=== PATIENT | female | born 2000 | race Caucasian/White ===

== ENCOUNTER 2024-04-02 12:07 | Emergency (ER) | payer OTHER | END 2024-04-02 13:01 | disposition admitted as inpatient to this hospital (09) | LOC: CSHERS 12:07 | DX: O9A.212 Injury, poisoning and certain other consequences of external causes complicating pregnancy, second trimester (principal); S39.91XA Unspecified injury of abdomen, initial encounter; Z3A.26 26 weeks gestation of pregnancy; V89.2XXA Person injured in unspecified motor-vehicle accident, traffic, initial encounter | CPT/HCPCS: 76815 ==

== ENCOUNTER 2024-04-02 12:40 | Day surgery (SDC) | payer OTHER ==
[2024-04-02 13:26] VITALS: BMI 34.3
[2024-04-02] MEDS: Acetaminophen 325 MG TAB PO SCH (15:15)
== END 2024-04-02 17:29 | disposition home or self-care (01) ==
LOC: CSHLD/OP 12:40
PROVIDERS: ATTEND Family Medicine
DX: O9A.212 Injury, poisoning and certain other consequences of external causes complicating pregnancy, second trimester (principal); O99.891 Other specified diseases and conditions complicating pregnancy; R10.31 Right lower quadrant pain; Z3A.27 27 weeks gestation of pregnancy; Z79.82 Long term (current) use of aspirin; V48.0XXA Car driver injured in noncollision transport accident in nontraffic accident, initial encounter
CPT/HCPCS: 76815; 99282

== ENCOUNTER 2024-04-30 20:31 | Inpatient (IN) | payer OTHER ==
[2024-04-30 21:40] LABS: Hematocrit 36.9 % (34.9-44.5); Hemoglobin 12.7 g/dL (12.0-15.5); Mean Corpuscular HGB CONC 34.4 g/dL (32.0-36.0); Mean Corpuscular Hemoglobin 29.3 pg (27.0-33.0); Mean Platelet Volume 14.1 fL (7.4-10.4); Platelet Count 125 10x3/uL (150-450); RBC Distribution Width 13.6 % (11.5-14.5); Red Blood Cell (RBC) Count 4.34 10x6/uL (3.90-5.03); White Blood Cell (WBC) Count 8.5 10x3/uL (3.5-10.5)
[2024-04-30 21:42] LABS: Bilirubin Neg (Negative); Blood, Urine Negative (Negative); Clarity Clear (Clear); Glucose, Urine (Dipstick) Normal (Negative); Ketone, Urine Negative (Negative); Leukocyte Negative (Negative); Nitrite Negative (Negative); Protein, Urine (Dipstick) 30 mg/dl (Neg-Trace); Urobilinogen Normal mg/dL (Less than 2)
[2024-04-30 21:43] LABS: MDiff Complete? YES
[2024-04-30 21:47] LABS: ALT (SGPT) 12 U/L (8-55); AST (SGOT) 16 U/L (5-34); Albumin 2.8 g/dL (3.5-5.0); Alkaline Phosphatase 126 U/L (40-110); Anion Gap 14 mmol/L (10-20); BUN (Urea Nitrogen) 5 mg/dL (7.0-18.7); Bilirubin, Total 0.2 mg/dL (0.2-1.2); Calc. Creatinine Clearance 0 mL/min (70-130); Calcium 8.5 mg/dL (7.8-10.44); Carbon Dioxide 16 mmol/L (22-29); Chloride 111 mmol/L (98-107); Estimated GFR 130; Globulin 2.8 g/dL (2.4-3.5); Glucose 94 mg/dL (70-105); Magnesium 1.9 mg/dL (1.6-2.6); Potassium 3.7 mmol/L (3.5-5.1); Protein, Total 5.6 g/dL (6.0-8.3); Sodium 137 mmol/L (136-145)
[2024-04-30 21:52] LABS: Troponin I Less than 0.010 ng/mL (< 0.028)
[2024-04-30 21:55] LABS: Bacteria/HPF 3+ HPF (None Seen); CAUTI Indications for Culture Pelvic or flank pain; Mucous/LPF 1+ LPF (<2+); RBC/HPF None Seen HPF (0-3); Urine Culture Reflex No No; WBC/HPF 0-3 HPF (0-3)
[2024-04-30 22:16] LABS: Platelet Adequacy Comment Appears Decreased
[2024-04-30 22:18] LABS: Microcytosis SLIGHT = 6-15 cells (100X) (0-5/hpf)
[2024-04-30 22:20] LABS: Band 8 % (5-11); Eosinophils 2 % (0-10); Giant Platelets SLIGHT HPF (0-5); Lymphocytes 25 % (21-51); Monocytes 7 % (0-10); Neutrophil 58 % (42-75)
[2024-04-30] MEDS ORDERED: Acetaminophen 500 MG TAB ONE (23:11)
[2024-04-30] MEDS ORDERED: hydrALAZINE 20 MG/ML VIAL SLOW IVP PRN (23:54)
[2024-05-01] MEDS ORDERED: Ondansetron PF 4 MG/2 ML Vial IVP PRN (00:48)
[2024-05-01] MEDS ORDERED: hydrALAZINE 20 MG/ML VIAL SLOW IVP PRN (00:48)
[2024-05-01] MEDS ORDERED: Promethazine HCl 25 MG/ML VIAL IM PRN (00:48)
[2024-05-01] MEDS ORDERED: Acetaminophen 500 MG TAB PO PRN (00:48)
[2024-05-01] MEDS: Betamet Acet/Betamet Na Ph 30 MG/5 ML VIAL IM SCH (09:09)
[2024-05-01] MEDS: Prenatal Vitamin 1 TAB PO SCH (09:09)
[2024-05-01] MEDS: Aspirin 81 mg Enteric Coated Tablet PO SCH (09:09)
[2024-05-01] MEDS: Pantoprazole DR 40 MG TAB PO SCH (09:10)
[2024-05-01 09:26] VITALS: BMI 36.7
[2024-05-01] MEDS: Calcium Carbonate 500 MG ChewTAB PO PRN (23:10)
[2024-05-02 04:02] LABS: #Basophils 0.01 10x3/uL (0.0-0.2); #Monocytes 0.62 10x3/uL (0.0-1.1); #Neutrophils 10.56 10x3/uL (1.5-8.4); %Basophils 0.1 % (0.0-2.0); %Lymphocytes 9.6 % (18.0-47.0); %Monocytes 4.9 % (0.0-10.0); %Neutrophils 83.6 % (40.0-75.0); Hematocrit 33.7 % (34.9-44.5); Hemoglobin 11.5 g/dL (12.0-15.5); Mean Corpuscular HGB CONC 34.1 g/dL (32.0-36.0); Mean Corpuscular Hemoglobin 29.3 pg (27.0-33.0); Platelet Count 126 10x3/uL (150-450); RBC Distribution Width 13.8 % (11.5-14.5); Red Blood Cell (RBC) Count 3.92 10x6/uL (3.90-5.03); White Blood Cell (WBC) Count 12.6 10x3/uL (3.5-10.5)
[2024-05-02 04:08] LABS: ALT (SGPT) 9 U/L (8-55); AST (SGOT) 13 U/L (5-34); Albumin 2.6 g/dL (3.5-5.0); Alkaline Phosphatase 111 U/L (40-110); Anion Gap 15 mmol/L (10-20); BUN (Urea Nitrogen) 8 mg/dL (7.0-18.7); Bilirubin, Total 0.2 mg/dL (0.2-1.2); Calc. Creatinine Clearance 190 mL/min (70-130); Calcium 8.9 mg/dL (7.8-10.44); Carbon Dioxide 18 mmol/L (22-29); Chloride 108 mmol/L (98-107); Estimated GFR 123; Globulin 2.8 g/dL (2.4-3.5); Glucose 130 mg/dL (70-105); Potassium 3.8 mmol/L (3.5-5.1); Protein, Total 5.4 g/dL (6.0-8.3); Sodium 137 mmol/L (136-145)
[2024-05-02 04:14] LABS: Creatinine, Urine 137.71 mg/dL (47-110)
[2024-05-02] MEDS ORDERED: Famotidine 20 MG TAB PO SCH (09:00)
[2024-05-02] MEDS: Polyethylene Glycol 3350 17 GM Packet PO SCH (09:25)
[2024-05-03 03:36] LABS: Hematocrit 33.3 % (34.9-44.5); Hemoglobin 11.4 g/dL (12.0-15.5); MDiff Complete? YES; Mean Corpuscular HGB CONC 34.2 g/dL (32.0-36.0); Mean Corpuscular Hemoglobin 29.7 pg (27.0-33.0); Mean Corpuscular Volume 86.7 fL (81.6-98.3); Mean Platelet Volume 14.1 fL (7.4-10.4); Platelet Count 125 10x3/uL (150-450); RBC Distribution Width 13.9 % (11.5-14.5); Red Blood Cell (RBC) Count 3.84 10x6/uL (3.90-5.03)
[2024-05-03 03:49] LABS: ALT (SGPT) 9 U/L (8-55); AST (SGOT) 12 U/L (5-34); Albumin 2.7 g/dL (3.5-5.0); Alkaline Phosphatase 109 U/L (40-110); Anion Gap 13 mmol/L (10-20); BUN (Urea Nitrogen) 9 mg/dL (7.0-18.7); Bilirubin, Total 0.2 mg/dL (0.2-1.2); Calc. Creatinine Clearance 199 mL/min (70-130); Calcium 8.6 mg/dL (7.8-10.44); Carbon Dioxide 20 mmol/L (22-29); Chloride 109 mmol/L (98-107); Estimated GFR 126; Globulin 2.9 g/dL (2.4-3.5); Glucose 129 mg/dL (70-105); Protein, Total 5.6 g/dL (6.0-8.3); Sodium 138 mmol/L (136-145)
[2024-05-03 04:08] LABS: Platelet Adequacy Comment Appears Decreased; RBC Morph Comment Within Normal Limits
[2024-05-03 04:09] LABS: Band 12 % (5-11); Lymphocytes 12 % (21-51); Monocytes 7 % (0-10); Neutrophil 69 % (42-75)
[2024-05-03 04:10] LABS: Giant Platelets SLIGHT HPF (0-5)
[2024-05-03] MEDS: Polyethylene Glycol 3350 17 GM Packet PO SCH (07:16)
[2024-05-03 10:06] VITALS: BP 127/77; TEMP 98.3
== END 2024-05-03 12:00 | disposition home or self-care (01) | DRG 832 ==
LOC: CSHERS 20:31 → CSHLD 23:52 → INTOOBSV 23:52 → OBSVTOIN 05-01 09:55 → CSHANTE 05-01 13:15
PROVIDERS: ADMIT Family Medicine; ATTEND Family Medicine
PROC: 4A0HXCZ Measurement of Products of Conception, Cardiac Rate, External Approach (ICD-10-PCS; principal; 2024-05-02)
DX: O13.3 Gestational [pregnancy-induced] hypertension without significant proteinuria, third trimester (principal); O99.113 Other diseases of the blood and blood-forming organs and certain disorders involving the immune mechanism complicating pregnancy, third trimester; E66.9 Obesity, unspecified; O14.93 Unspecified pre-eclampsia, third trimester; D69.6 Thrombocytopenia, unspecified; Z3A.31 31 weeks gestation of pregnancy; Z79.82 Long term (current) use of aspirin; O99.213 Obesity complicating pregnancy, third trimester; K21.9 Gastro-esophageal reflux disease without esophagitis; O99.613 Diseases of the digestive system complicating pregnancy, third trimester
CPT/HCPCS: 36415; 59025; 71046; 71275; 76815; 76819; 80053; 81001; 82570; 83735; 83880; 84156; 84443; 84484; 85025; 85379; 86900; 86901; 87086; 93005; 99285; J0702

== ENCOUNTER 2024-05-19 00:16 | Inpatient (IN) | payer OTHER ==
[2024-05-19] MEDS ORDERED: Calcium Gluc 4.6 MEQ/10 ML (100 MG/ML) SLOW IVP PRN (01:00)
[2024-05-19] MEDS ORDERED: Labetalol HCl 100 MG/20 ML VIAL SLOW IVP PRN ×2 (01:00)
[2024-05-19] MEDS ORDERED: Lorazepam 2 MG/ML VIAL SLOW IVP PRN (01:00)
[2024-05-19] MEDS: hydrALAZINE 20 MG/ML VIAL SLOW IVP PRN ×3 (01:08→18:04)
[2024-05-19 01:25] LABS: #Basophils 0.05 10x3/uL (0.0-0.2); #Eosinphils 0.04 10x3/uL (0.0-0.5); #Monocytes 0.71 10x3/uL (0.0-1.1); #Neutrophils 4.99 10x3/uL (1.5-8.4); %Basophils 0.6 % (0.0-2.0); %Eosinophils 0.4 % (0.0-6.0); %Lymphocytes 34.3 % (18.0-47.0); %Monocytes 7.9 % (0.0-10.0); %Neutrophils 55.7 % (40.0-75.0); Hematocrit 40.4 % (34.9-44.5); Hemoglobin 14.3 g/dL (12.0-15.5); Mean Corpuscular HGB CONC 35.4 g/dL (32.0-36.0); Mean Corpuscular Hemoglobin 29.5 pg (27.0-33.0); Mean Corpuscular Volume 83.5 fL (81.6-98.3); Mean Platelet Volume 13.7 fL (7.4-10.4); Platelet Count 123 10x3/uL (150-450); RBC Distribution Width 13.5 % (11.5-14.5); Red Blood Cell (RBC) Count 4.84 10x6/uL (3.90-5.03)
[2024-05-19 01:27] LABS: ALT (SGPT) 21 U/L (8-55); AST (SGOT) 30 U/L (5-34); Albumin 2.5 g/dL (3.5-5.0); Alkaline Phosphatase 197 U/L (40-110); Anion Gap 16 mmol/L (10-20); BUN (Urea Nitrogen) 24 mg/dL (7.0-18.7); Bilirubin, Total 0.3 mg/dL (0.2-1.2); Calc. Creatinine Clearance 0 mL/min (70-130); Calcium 8.6 mg/dL (7.8-10.44); Carbon Dioxide 14 mmol/L (22-29); Chloride 109 mmol/L (98-107); Estimated GFR 94; Globulin 2.7 g/dL (2.4-3.5); Glucose 78 mg/dL (70-105); Protein, Total 5.2 g/dL (6.0-8.3); Sodium 135 mmol/L (136-145)
[2024-05-19 01:57] LABS: Bilirubin Neg (Negative); Blood, Urine 50 (Negative); Clarity Clear (Clear); Glucose, Urine (Dipstick) Normal (Negative); Ketone, Urine Negative (Negative); Leukocyte Negative (Negative); Nitrite Negative (Negative); Protein, Urine (Dipstick) 500 mg/dl (Neg-Trace); Specific Gravity, Urine 1.015 (1.005-1.030); Urobilinogen Normal mg/dL (Less than 2)
[2024-05-19] MEDS ORDERED: Misoprostol 200 MCG TAB PR PRN (02:00)
[2024-05-19] MEDS ORDERED: Methylergonovine 0.2 MG/ML VIAL IM PRN (02:00)
[2024-05-19] MEDS ORDERED: Promethazine HCl 25 MG/ML VIAL IM PRN (02:00)
[2024-05-19] MEDS ORDERED: Diphenoxylate HCl/Atropine Tablet PO PRN (02:00)
[2024-05-19] MEDS ORDERED: Tranexamic Acid 1,000 MG/10 ML VIAL IVP PRN (02:00)
[2024-05-19] MEDS ORDERED: Carboprost 250 MCG/ML AMP IM PRN (02:00)
[2024-05-19 02:02] LABS: Bacteria/HPF None Seen HPF (None Seen); CAUTI Indications for Culture Pregnancy; RBC/HPF 0-3 HPF (0-3); Squamous Epithelial 0-3 HPF (0-3); WBC/HPF 0-3 HPF (0-3)
[2024-05-19 02:04] LABS: Urine Culture Reflex Yes Yes
[2024-05-19 02:13] LABS: Creatinine, Urine 85.54 mg/dL (47-110)
[2024-05-19 02:44] LABS: HBsAg Index 0.15 S/CO (0-0.99); Hep B Surf Ag - L&D Non-Reactive S/CO (NonReactive)
[2024-05-19 02:46] LABS: Syphilis Antibody Nonreactive (Nonreactive); Syphilis Antibody Index 0.02 S/CO (<1.00 Non-Reactive)
[2024-05-19] MEDS ORDERED: Lidocaine 1% (PF) 30 ML VIAL SC PRN ×2 (03:19→03:41)
[2024-05-19] MEDS ORDERED: Misoprostol 100 MCG TAB VAG SCH (03:30)
[2024-05-19] MEDS: Misoprostol 100 MCG TAB VAG SCH (03:34)
[2024-05-19] MEDS: Acetaminophen 500 MG TAB PO SCH (03:38)
[2024-05-19] MEDS: Ondansetron PF 4 MG/2 ML Vial IVP PRN ×3 (03:38→23:38)
[2024-05-19] MEDS ORDERED: Oxytocin 30 units/NS 500 ML 500 ML IV SCH ×2 (03:45)
[2024-05-19] MEDS ORDERED: Penicillin G Potassium 5 MILL.UNITS in Sodium Chloride 0.9% 100 ML IVPB SCH (04:00)
[2024-05-19 04:15] VITALS: BMI 36.8
[2024-05-19] MEDS ORDERED: Famotidine/PF 20 mg/2ml Vial SLOW IVP PRN (06:08)
[2024-05-19] MEDS ORDERED: Bicitra 30 ML UDCUP PO PRN (06:08)
[2024-05-19] MEDS ORDERED: CEFAZOLIN 2 GM in Sodium Chloride 0.9% 100 ML IVPB SCH (06:15)
[2024-05-19] MEDS ORDERED: diphenhydrAMINE 50 MG/ML VIAL IVP PRN (06:50)
[2024-05-19] MEDS ORDERED: Naloxone HCl 0.4 mg/ml Vial IV PRN (06:50)
[2024-05-19] MEDS ORDERED: Meperidine HCl/PF 25 MG (1 mL) VIAL SLOW IVP PRN (06:50)
[2024-05-19] MEDS ORDERED: Naloxone HCl 0.4 mg/ml Vial IVP PRN ×2 (06:50)
[2024-05-19] MEDS ORDERED: Moisturizing Cream (Eucerin) 113 GM JAR TOP PRN (06:50)
[2024-05-19] MEDS ORDERED: fentaNYL 50 mcg/mL 1 mL Vial SLOW IVP PRN (06:50)
[2024-05-19] MEDS ORDERED: HYDROmorphone 0.5 MG/0.5 ML SYRINGE SLOW IVP PRN (06:50)
[2024-05-19] MEDS ORDERED: Ketorolac Tromethamine 30 MG (1 mL) VIAL IVP SCH (07:00)
[2024-05-19] MEDS ORDERED: Communication Order-Pharmacy FS SCH (07:00)
[2024-05-19] MEDS ORDERED: Penicillin G 2.5 MILL.units 2.5 MILL.UNITS in Premix 1 BAG IVPB SCH (08:00)
[2024-05-19] MEDS: Oxytocin 30 units/NS 500 ML 500 ML IV SCH (08:11)
[2024-05-19] MEDS: Magnesium Sulfate 20 gm/500 ml 20 GM/500 ML BAG IVPB SCH (08:11)
[2024-05-19] MEDS: Lactated Ringer's 1,000 ML IV SCH (08:12)
[2024-05-19 09:27] LABS: Analyzer IN Cardio CS NICU
[2024-05-19 09:30] LABS: Analyzer IN Cardio CS NICU; Critical Notified By: ASANCHEZ; pH (Cord, venous) 7.133 (7.250-7.350)
[2024-05-19] MEDS: Promethazine HCl 25 MG/ML VIAL IM PRN (10:03)
[2024-05-19] MEDS: Ketorolac Tromethamine 30 MG (1 mL) VIAL IVP PRN (11:40)
[2024-05-19] MEDS: CEFAZOLIN 2 GM VIAL ONE (11:58)
[2024-05-19] MEDS: Magnesium Sulfate 20 gm/500 ml 20 GM/500 ML BAG ONE ×2 (11:58→12:00)
[2024-05-19] MEDS: hydrALAZINE 20 MG/ML VIAL ONE ×2 (11:58→16:51)
[2024-05-19] MEDS: Erythromycin Base 0.5% Oint 1 GM TUBE ONE (11:59)
[2024-05-19] MEDS: Phenylephrine 40 MG/NS 250 ML 250 ML ONE ×2 (11:59)
[2024-05-19] MEDS: Phytonadione Neonatal 1 MG/0.5 ML AMP ONE (11:59)
[2024-05-19] MEDS: Morphine PF 10 MG/10 ML VIAL ONE (11:59)
[2024-05-19] MEDS: Oxytocin 10 UNITS/ML VIAL ONE (11:59)
[2024-05-19] MEDS: Oxytocin 30 units/NS 500 ML 500 ML ONE (12:00)
[2024-05-19] MEDS: PHENYLEPHRINE-NS 100 MCG/ML 10 ML SYRINGE ONE (12:00)
[2024-05-19] MEDS ORDERED: hydrALAZINE 20 MG/ML VIAL SLOW IVP PRN (17:23)
[2024-05-19] MEDS: Labetalol HCl 200 MG TAB PO SCH (20:45)
[2024-05-19] MEDS: HYDROcodone/Acetaminophen 5/325 mg Tablet PO PRN (23:38)
[2024-05-20] MEDS: Labetalol HCl 200 MG TAB PO SCH ×2 (07:36→20:47)
[2024-05-20] MEDS: Labetalol HCl 100 MG TAB PO SCH (08:12)
[2024-05-20] MEDS ORDERED: Misoprostol 200 MCG TAB PR PRN (08:26)
[2024-05-20] MEDS ORDERED: hydrALAZINE 20 MG/ML VIAL SLOW IVP PRN (08:26)
[2024-05-20] MEDS ORDERED: Lanolin Ointment 7 GM TUBE TOP PRN (08:26)
[2024-05-20] MEDS ORDERED: HYDROcodone/Acetaminophen 5/325 mg Tablet PO PRN (08:26)
[2024-05-20] MEDS ORDERED: Calcium Gluc 4.6 MEQ/10 ML (100 MG/ML) SLOW IVP PRN (08:26)
[2024-05-20] MEDS ORDERED: Magnesium Sulfate 20 gm/500 ml 20 GM/500 ML BAG IVPB SCH (08:26)
[2024-05-20] MEDS ORDERED: diphenhydrAMINE 25 MG CAP PO PRN (08:26)
[2024-05-20] MEDS ORDERED: Ondansetron PF 4 MG/2 ML Vial IVP PRN (08:26)
[2024-05-20] MEDS ORDERED: Labetalol HCl 100 MG/20 ML VIAL SLOW IVP PRN ×2 (08:26)
[2024-05-20] MEDS ORDERED: Magnesium Sulfate 20 gm/500 ml 4 GM/100 ML BAG IVPB SCH (08:26)
[2024-05-20] MEDS ORDERED: Lorazepam 2 MG/ML VIAL SLOW IVP PRN (08:26)
[2024-05-20] MEDS ORDERED: Oxytocin 30 units/NS 500 ML 500 ML IV SCH (08:26)
[2024-05-20] MEDS ORDERED: Simethicone Chewable 80 MG TAB PO PRN (08:26)
[2024-05-20] MEDS: Ibuprofen 800 MG TAB PO SCH (08:43)
[2024-05-20 10:08] LABS: Hematocrit 38.8 % (34.9-44.5); Hemoglobin 13.2 g/dL (12.0-15.5); Mean Corpuscular Hemoglobin 29.5 pg (27.0-33.0); Mean Corpuscular Volume 86.8 fL (81.6-98.3); Mean Platelet Volume 13.9 fL (7.4-10.4); Platelet Count 107 10x3/uL (150-450); RBC Distribution Width 14.1 % (11.5-14.5); Red Blood Cell (RBC) Count 4.47 10x6/uL (3.90-5.03); White Blood Cell (WBC) Count 9.3 10x3/uL (3.5-10.5)
[2024-05-20] MEDS: Ferrous Sulfate 325 MG TAB PO SCH (12:34)
[2024-05-20] MEDS: Docusate 100 MG CAP PO SCH ×2 (12:34→20:47)
[2024-05-20] MEDS: Prenatal Vitamin 1 TAB PO SCH (12:35)
[2024-05-20] MEDS: HYDROcodone/Acetaminophen 5/325 mg Tablet PO PRN (13:12)
[2024-05-20 15:25] LABS: Group B Streptococcus by PCR DETECTED (NotDetected)
[2024-05-21 04:11] LABS: Hematocrit 33.9 % (34.9-44.5); Mean Corpuscular HGB CONC 35.4 g/dL (32.0-36.0); Mean Corpuscular Volume 87.6 fL (81.6-98.3); Mean Platelet Volume 14.3 fL (7.4-10.4); Platelet Count 111 10x3/uL (150-450); RBC Distribution Width 14.4 % (11.5-14.5); Red Blood Cell (RBC) Count 3.87 10x6/uL (3.90-5.03); White Blood Cell (WBC) Count 9.4 10x3/uL (3.5-10.5)
[2024-05-21] MEDS: Ferrous Sulfate 325 MG TAB PO SCH (06:47)
[2024-05-21] MEDS: Prenatal Vitamin 1 TAB PO SCH (08:22)
[2024-05-21] MEDS: hydrALAZINE 20 MG/ML VIAL SLOW IVP PRN (20:16)
[2024-05-22] MEDS: Boostrix 0.5 ML (Tdap) VIAL (>/=7 yrs of age) IM ONE (14:50)
[2024-05-22 19:34] VITALS: TEMP 98.3
[2024-05-22 21:09] VITALS: BP 136/86
== END 2024-05-22 22:05 | disposition home or self-care (01) | DRG 788 ==
LOC: CSHLD/OP 00:16 → CSHLD 05:37 → CSHPED 05-20 10:27
PROVIDERS: ADMIT Family Medicine; ATTEND Family Medicine
PROC: 10D00Z1 Extraction of Products of Conception, Low, Open Approach (ICD-10-PCS; principal; 2024-05-19)
DX: O13.4 Gestational [pregnancy-induced] hypertension without significant proteinuria, complicating childbirth (principal); Z37.0 Single live birth; O45.93 Premature separation of placenta, unspecified, third trimester; Z3A.34 34 weeks gestation of pregnancy; D69.6 Thrombocytopenia, unspecified; E66.9 Obesity, unspecified; O14.14 Severe pre-eclampsia complicating childbirth; O99.214 Obesity complicating childbirth; O99.02 Anemia complicating childbirth; O76 Abnormality in fetal heart rate and rhythm complicating labor and delivery
CPT/HCPCS: 36415; 51702; 80053; 81001; 82570; 82805; 84156; 85025; 85027; 86780; 86850; 86900; 86901; 87086; 87340; 87653; 88307; 99285; J0360; J1885; J2274; J2405; J2550; J2590; J3475; J7120